=== PATIENT | male | born 1935 | race Caucasian/White ===

== ENCOUNTER 2019-02-19 12:00 | Inpatient (IN) | payer MEDICARE ==
[~2019-02-19] VITALS: Ht 167.6 cm; Wt 102.4 kg
[2019-02-19 12:35] LABS: Bicarbonate Venous 26.2 mmol/L (24.0-30.0); PCO2 Venous 38.2 mmHg (38-42); PO2 Venous 104 mmHg (38-42); pH Blood Venous 7.44 (7.34-7.37)
[2019-02-19 12:40] LABS: Hemoglobin 13.9 g/dL (13.5-17.5); Mean Corpuscular HGB 27.9 pg (26.0-34.0); Mean Corpuscular HGB Conc 32.3 g/dL (31.5-36.5); Mean Corpuscular Volume 86 fL (80-100); Mean Platelet Volume 12.2 fL (9.1-12.4); Platelet Count 167 K/mm3 (150-400); RDW Coefficient Variation 16.1 % (11.7-14.2); RDW Standard Deviation 50.3 fL (35.1-46.3); Red Blood Cell Count 4.98 M/mm3 (4.30-5.90); White Blood Cell Count 5.59 K/mm3 (4.00-11.30)
[2019-02-19 12:55] LABS: Alanine Aminotransfer (ALT/SGP 30 U/L (12-78); Albumin, Blood 2.5 g/dL (3.4-5.0); Albumin/Globulin Ratio 0.7 (0.8-1.8); Alk Phos 126 U/L (50-136); Anion Gap 7 mmol/L (6-16); Aspartate Aminotrans (AST/SGOT 37 U/L (12-37); Bilirubin, Total 0.6 mg/dL (0.1-1.0); Blood Urea Nitrogen 16 mg/dL (8-24); Bun/Creatinine Ratio 17.6 (12.0-20.0); CO2, Blood 27 mmol/L (21-32); Calcium, Blood 7.4 mg/dL (8.5-10.1); Chloride, Blood 102 mmol/L (98-108); Creatinine, Blood 0.91 mg/dL (0.60-1.20); Globulin, Blood 3.6 g/dL (2.2-4.0); Glomerular Filtration Rate >60 (60-); Glucose, Blood 145 mg/dL (70-99); Potassium, Blood 3.8 mmol/L (3.5-5.5); Sodium, Blood 136 mmol/L (136-145); Total Protein, Blood 6.1 g/dL (6.4-8.2)
[2019-02-19] MEDS ORDERED: ALBU90OI61 INH (13:04)
[2019-02-19] MEDS ORDERED: FINA5 PO (13:05)
[2019-02-19] MEDS ORDERED: AMLO10 PO (13:05)
[2019-02-19] MEDS ORDERED: FURO20 PO (13:06)
[2019-02-19] MEDS ORDERED: LEVSOD50 PO (13:06)
[2019-02-19] MEDS ORDERED: LOSARTAN POTAS100 MG PO (13:07)
[2019-02-19] MEDS ORDERED: POTCHL20ER PO (13:08)
[2019-02-19] MEDS ORDERED: METO25 PO (13:08)
[2019-02-19] MEDS ORDERED: TIOT18 INH (13:09)
[2019-02-19] MEDS ORDERED: TAMS.4ER PO (13:09)
[2019-02-19] MEDS ORDERED: WARF5 PO (13:10)
[2019-02-19] MEDS ORDERED: WARF7.5 PO (13:11)
[2019-02-19 13:28] LABS: BAND PERCENT MAN 6 % (0-8); BASOPHILS ABSOLUTE MAN 0.05 K/mm3 (0.00-0.23); BASOPHILS PERCENT MAN 1 % (0-2); EOSINOPHILS PERCENT MAN 0 % (0-6); LYMPHOCYTES % ATYPICAL MANUAL 1 % (0-0); LYMPHOCYTES ABSOLUTE MAN 1.62 K/mm3 (0.84-5.20); LYMPHOCYTES PERCENT MAN 28 % (21-46); MONOCYTES ABSOLUTE MAN 0.05 K/mm3 (0.16-1.47); MONOCYTES PERCENT MAN 1 % (4-13); NEUTROPHILS ABSOLUTE MAN 3.85 K/mm3 (1.96-9.15); SEG NEUTROPHILS PERCENT MAN 63 % (41-73); TOTAL CELLS COUNTED 100
[2019-02-19 15:28] LABS: International Normalized Ratio 1.8; Prothrombin Time Results 18.1 Sec (9.7-11.5)
--- NOTE | 2019-02-19 18:42 | NUR ---
PT ARRIVED [facility] THE MEDICAL FLOOR FROM THE ER AROUND 1530, A/OX3 PLEASANT AND COOPERATIVE, ON BI-PAP AND TOLERATING IT WELL, THE PT DENIED ANY PAIN OR DISCOMFORT AT THAT TIME, THE PT WAS ORIENTED TO THE ROOM LAYOUT AND CALL SYSTEM, CALL LIGHT IN REACH THE PT WAS GIVEN A SHORT BREAK FROM THE BI-PAP THIS AFTERNOON AND FOR DINNER, APPEARS TO BE BREATHING EASILY AT REST AT THIS TIME ON 3L/MIN O2
[2019-02-20 04:47] LABS: Hematocrit 45.1 % (37.0-53.0); Hemoglobin 14.2 g/dL (13.5-17.5); Mean Corpuscular HGB 27.2 pg (26.0-34.0); Mean Corpuscular HGB Conc 31.5 g/dL (31.5-36.5); Mean Corpuscular Volume 86 fL (80-100); Mean Platelet Volume 11.5 fL (9.1-12.4); Platelet Count 169 K/mm3 (150-400); RDW Coefficient Variation 15.7 % (11.7-14.2); RDW Standard Deviation 49.4 fL (35.1-46.3); Red Blood Cell Count 5.23 M/mm3 (4.30-5.90); White Blood Cell Count 2.55 K/mm3 (4.00-11.30)
[2019-02-20 05:03] LABS: International Normalized Ratio 1.89; Prothrombin Time Results 18.9 Sec (9.7-11.5)
[2019-02-20 05:10] LABS: Anion Gap 8 mmol/L (6-16); Blood Urea Nitrogen 22 mg/dL (8-24); Bun/Creatinine Ratio 24.3 (12.0-20.0); CO2, Blood 27 mmol/L (21-32); Calcium, Blood 7.9 mg/dL (8.5-10.1); Chloride, Blood 104 mmol/L (98-108); Creatinine, Blood 0.91 mg/dL (0.60-1.20); Glomerular Filtration Rate >60 (60-); Glucose, Blood 177 mg/dL (70-99); Potassium, Blood 3.4 mmol/L (3.5-5.5); Sodium, Blood 139 mmol/L (136-145)
--- NOTE | 2019-02-20 05:36 | NUR ---
SHIFT SUMMARY PT A&O X4, CALM AND COOPERATIVE. LUNG SOUNDS COARSE T/O. SPO2 > 92% ON 2L NC OR RA. BIPAP AT BEDSIDE, PT WEARING FOR SHORT PERIOD THIS SHIFT. MONITOR SHOWS AFIB, HR 70'S-80'S. ABD FIRM & MODERATELY DISTENDED, PT STATES NORMAL. PT DENIES PAIN. PITTING EDEMA TO BLE, ELEVATED W/ PILLOWS. PT SBA TO BR, TOLERATING AMBULATION WELL ON RA W/ DESATURATION. PT AWAKE MOST OF SHIFT, IN BED W/ CALL LIGHT IN REACH. WILL CONTINUE TO MONITOR AND PROVIDE CARE UNTIL REPORT OFF TO DAY SHIFT RN.
--- NOTE | 2019-02-20 08:16 | NUR ---
PT A/O, O2 SAT 93% ON 2L NC, DID HAVE INCREASED SOB W/EXCERTION WITH A DROP IN O2 SAT TO 88%, RECOVERED ONCE BACK TO BED. SBA TO BATHROOM, REFUSED URINAL. BLE EDEMA 2+. ABD DISTENTION, PT REPORTS THIS IS BASELINE.
--- NOTE | 2019-02-20 16:54 | NUR ---
SHIFT SUMMARY PT A/O. DID NOT EAT MUCH LUNCH TODAY. PT HAS BEEN VOIDING, STANDBY ASSIST TO BATHROOM. PT DID HAVE INCREASED SOB WITH EXERTION, BUT O2 BACK TO BASELINE WITH REST. PT HAS BEEN ON O2 ALL DAY TODAY. RESPIRATORY THERAPY HAS BEEN IN TO SEE PT TODAY.
--- NOTE | 2019-02-20 17:54 | NUR ---
SHIFT SUMMARY PT HAD INCREASED SOB W/EXCERTION BUT O2 SAT'S MAINTAINED >92% ON 2L NC. DID HAVE INCREASED ABD PAIN WITH N/V-MEDICATED ONCE WITH ZOFRAN. PT REPORTS PASSING FLATUS AND THAT HIS N/V HAS SINCE RESOLVED. SBA TO BATHROOM. PLAN IS TO CONTINUE WITH IV SOLU-MEDROL.
[2019-02-21 04:25] LABS: International Normalized Ratio 2.96; Prothrombin Time Results 28.4 Sec (9.7-11.5)
[2019-02-21 04:28] LABS: Anion Gap 5 mmol/L (6-16); Blood Urea Nitrogen 28 mg/dL (8-24); Bun/Creatinine Ratio 31.5 (12.0-20.0); CO2, Blood 27 mmol/L (21-32); Calcium, Blood 7.9 mg/dL (8.5-10.1); Chloride, Blood 106 mmol/L (98-108); Creatinine, Blood 0.89 mg/dL (0.60-1.20); Glomerular Filtration Rate >60 (60-); Glucose, Blood 177 mg/dL (70-99); Potassium, Blood 4.4 mmol/L (3.5-5.5); Sodium, Blood 138 mmol/L (136-145)
--- NOTE | 2019-02-21 06:24 | NUR ---
SHIFT SUMMARY PT A&O X4, CALM AND COOPERATIVE. PT STATES FEELING BETTER THIS SHIFT W/ NO C/O NAUSEA, PAIN OR DISCOMFORT. VSS. ORDER OBTAINED FOR PRN HYDRALAZINE THIS SHIFT, MEDICATION NOT GIVEN D/T BP COMING DOWN BELOW GIVEN SYS BP PARAMATERS W/OUT MEDICATION TX. AUDIBLE WHEEZE T/O LUNGS. SPO2 > 92% ON 2L NC W/ DECREASE TO HIGH 80'S W/ AMBULATION IN ROOM. BLE CONTIUE TO BE EDEMATOUS. PT KEEPING BLE ELEVATED W/ PILLOWS WHILE LAYING IN BED. WILL CONTINUE TO MONITOR AND PROVIDE CARE UNTIL REPORT OFF TO DAY SHIFT RN.
--- NOTE | 2019-02-21 11:09 | NUR ---
AM NOTE PT AWAKE, SITTING ON SIDE OF THE BED. HE JUST COMPLETED A BREATHING TREATMENT. AUDIBLE WHEEZES HEARD. SAT STABLE. VOICE CLEAR AND STRONG. HE STATED HE FEELS BETTER BUT BREATHING TREATMENTS GIVE HIM HEART BURN. VSS. NO COUGH. 2L N/C. DENIED DISCOMFORT. CONTINUE POT.
--- NOTE | 2019-02-21 17:47 | NUR ---
Initial Visit: Palliative Care Consult for Symptom Management. Pt is A&O and denies pain at this time. Pt reports 2/7 dyspnea at rest and worsens with exertion. Pt denies anxiety at this time but repots anxiety when dyspnea is severe. Pt denies nausea. Pt reports that his breathing has significanlty improved and breathing treatment are managing his SOB. Engaged in therapeutic conversation regarding advanced care planning. Pt reports that he lives at home with his and does not practice any mu-ism. Pt is a and served in the [employer]. Pt reports no concerns of need for care. Pt at baseline is independent of all ADLs and is able to participate in normal activity. He reports experiencing dyspnea at times during activity but with rest he recovers and continues on. Educated Pt on disease process of COPD including trajectory of disease. Encouraged Pt to have routine conversations with his PCP regarding his COPD in order to plan accordingly. Pt was unaware of trajectory and states "I did not know there was no cure for COPD". Suggested to follow his PCP's recommendations with managing his COPD. Discussed high risk readmission program and Pt expresses interest. Pt reports no other concerns at this time. Left written education on COPD with Pt. Spoke with Pt's bedside nurse Karrie and she reports concerns with Pt's breathing. No other concerns reported at this time. Plan: Left message with Tushar for COPD education regarding Pt's interest in high risk readmission program. Will f/u for symptom mangement of dyspnea.
--- NOTE | 2019-02-21 17:57 | NUR ---
EVENING NOTE PT ALERT AND ORIENTED. SR. SITTING IN THE CHAIR AT BEDSIDE MOST OF THE DAY. UP TO BATHROOM AD PAMELA. VOIDING PER URINAL SOMETIMES. EATING WELL. PT HAS FOUND THAT SIPPING YAEL MIST AFTER THE BREATHING TREATMENTS RELIEVES HIS HEARTBURN. VSS. INTERMITTANT AUDIBLE WHEEZES. RELIEVED WITH BREATHING TREATMENT. CONTINUE POT.
[2019-02-22 04:27] LABS: International Normalized Ratio 3.01; Prothrombin Time Results 28.9 Sec (9.7-11.5)
--- NOTE | 2019-02-22 05:59 | NUR ---
SHIFT SUMMARY PT A&O X4. INDEPENDENT IN ROOM. SOB W/ EXERTION, RECOVERS QUICKLY. SPO2 > 92% ON 2L NC. WHEEZE HEARD T/O LUNGS. MONITOR SHOWS AFIB W/ RATE CONTROLLED 70'S-80'S. BLE EDEMATOUS. PT KEEPING BLE ELEVATED W/ PILLOW WHEN LAYING IN BED. WILL CONTINUE TO MONITOR AND PROVIDE CARE UNTIL REPORT OFF TO DAY JOSE AGUILERA.
--- NOTE | 2019-02-22 08:10 | NUR ---
RECEIVED REPORT AND ASSUMED CARE OF PATIENT. WHEN THIS NURSE ENTERED ROOM, PT ASKS ABOUT NOTARY COMING TO HIS ROOM TO SIGN HIS WILL. HE BELIEVE THAT HE IS GOING TO SOON AND STATED HE WAS TOLD HE COULD NOT LEAVE THE HOSPITAL. EDUCATED PATIENT AND LISTENED TO HIS CONCERNS. WILL ASK PALLIATIVE CARE TO FOLLOW UP WITH PATIENT AND ADDITIONALLY SPEAK WITH DOCTOR ABOUT POSSIBLE O2 EVAL FOR HOME O2 SET UP IF NEEDED. PT AFFECT GREATLY IMPROVED AFTER DISCUSSION AND LISTENING TO HIS CONCERNS AND FEARS. WILL CONTINUE TO PROVIDE THERAPEUTIC LISTENING AND ENSURE HIS CONCERNS ARE ADDRESSED TODAY.
--- NOTE | 2019-02-22 16:07 | NUR ---
PT DOING WELL THIS AFTERNOON, HE IS UP AND AROUND HIS ROOM INDEPENDENTLY. PT REPORTS HE IS FEELING SO MUCH BETTER THE DAY GOES ON. HE HAS BEEN OFF OF O2 MOST OF THE DAY. TRANSFER ORDER RECEIVED TO GO TO MEDICAL FLOOR ROOM 338. WILL GIVE REPORT TO RN.
--- NOTE | 2019-02-22 17:50 | NUR ---
PATIENT TRANSFERRED FROM PCU THIS AFTERNOON. HE IS A/O X 4 AND INDEPENDENT IN THE ROOM. NO COMPLAINTS OF PAIN, SOB, NV. TELE STARTED WITH NO ISSUES NOTED FROM TECH.
[2019-02-23 05:25] LABS: Hematocrit 48.7 % (37.0-53.0); Mean Corpuscular HGB 27.1 pg (26.0-34.0); Mean Corpuscular HGB Conc 30.8 g/dL (31.5-36.5); Mean Corpuscular Volume 88 fL (80-100); Mean Platelet Volume 11.1 fL (9.1-12.4); Platelet Count 356 K/mm3 (150-400); RDW Coefficient Variation 16.1 % (11.7-14.2); Red Blood Cell Count 5.53 M/mm3 (4.30-5.90); White Blood Cell Count 14.22 K/mm3 (4.00-11.30)
[2019-02-23 05:33] LABS: International Normalized Ratio 2.34
--- NOTE | 2019-02-23 05:41 | NUR ---
*SHIFT SUMMARY* PATIENT IS ALERT. USES CPAP AT NIGHT WITH CONTINUOUS PULSE OX. REPORTS HE GETS UP TO PEE FREQUENTLY. PT DID WAKE UP EARLY THIS AM AND LEAVE HIS ROOM. PT STATED HE WAS DONE BEING HERE AND WAS GOING TO GET FOOD. PATIENT RIPPED OFF TELE LEADS. PATIENT WAS ABLE TO BE REDIRECTED BACK TO ROOM. FOOD GIVEN TO PATIENT AND HE WAS COOPERATIVE AND PUT TELE BACK ON. PATIENT WENT BACK TO SLEEP AFTER AND HAS CONTINUED TO BE PLEASANT. VITALS STABLE. BLOOD PRESSURE WAS SLIGHTLY ELEVATED HOWEVER THIS WAS SHORTLY AFTER PATIENT HAD BEEN UP WALKING.
[2019-02-23 05:55] LABS: Anion Gap 5 mmol/L (6-16); Blood Urea Nitrogen 22 mg/dL (8-24); Bun/Creatinine Ratio 26.4 (12.0-20.0); CO2, Blood 30 mmol/L (21-32); Chloride, Blood 104 mmol/L (98-108); Creatinine, Blood 0.83 mg/dL (0.60-1.20); Glomerular Filtration Rate >60 (60-); Glucose, Blood 173 mg/dL (70-99); Sodium, Blood 139 mmol/L (136-145)
[2019-02-23] MEDS ORDERED: ALBU3IS INH (14:24)
[2019-02-23] MEDS ORDERED: PANT20 PO (14:26)
[2019-02-23] MEDS ORDERED: POTA10T PO (14:27)
[2019-02-23] MEDS ORDERED: PRED20 PO (14:28)
--- NOTE | 2019-02-23 14:41 | NUR ---
PATIENT HAD IV REMOVED PRIOR TO DISCHARGE. NO SS OF INFECTION NOTED. NURSE FAXED MEDICATION TO [facility]. NEW MEDS WERE GONE OVER AND PATIENT WAS INSRUCTED TO ESTABLISH A PCP AT [facility] AND TO FOLLOW UP WITH THEM. PATIENT EDUCATED ON NEW MEDS AND HOW TO TAKE THEM. PATIENT WALKED OUT WITH GRANDSON WHO WAS TO TAKE PATIENT HOME.
== END 2019-02-23 14:38 | disposition home or self-care (01) | DRG 189 ==
LOC: ER 12:00 → PCU 13:16 → MEDS 02-22 17:28 → ENPENDDIS 02-23 13:29 → MEDS 02-23 14:38
PROVIDERS: Emergency Medicine; ADMIT Internal Medicine
PROC: 5A09357 Assistance with Respiratory Ventilation, Less than 24 Consecutive Hours, Continuous Positive Airway Pressure (ICD-10-PCS; principal; 2019-02-19)
DX: J96.01 Acute respiratory failure with hypoxia (principal); J44.1 Chronic obstructive pulmonary disease with (acute) exacerbation; E03.9 Hypothyroidism, unspecified; E66.9 Obesity, unspecified; E87.6 Hypokalemia; Z51.5 Encounter for palliative care; G47.33 Obstructive sleep apnea (adult) (pediatric); I10 Essential (primary) hypertension; I48.91 Unspecified atrial fibrillation; N40.0 Benign prostatic hyperplasia without lower urinary tract symptoms; Z87.891 Personal history of nicotine dependence; Z79.01 Long term (current) use of anticoagulants; Z68.36 Body mass index [BMI] 36.0-36.9, adult
CPT/HCPCS: 36415; 71045; 80048; 80053; 82803; 83605; 83880; 84145; 85025; 85027; 85610; 93005; 93010; 94640; 94660; 94762; 96365; 96367; 99285-25; J0360; J0456; J0696; J2405; J2920; J2930; J7050

== ENCOUNTER 2019-09-06 15:16 | Inpatient (IN) | payer MEDICARE ==
[~2019-09-06] VITALS: Ht 167.6 cm; Wt 101.9 kg
[~2019-09-06 15:16] MED LIST: ALBU3IS INH; ALBU90OI61 INH; AMLO10 PO; FINA5 PO; FURO40 PO; LEVSOD100 PO; LOSARTAN POTAS100 MG PO; METO25 PO; PANT20 PO; POTA10T PO; POTCHL20ER PO; PRED20 PO; TAMS.4ER PO; TIOT18 INH; WARF5 PO; WARF7.5 PO
[2019-09-06 16:01] LABS: BASOPHILS ABSOLUTE AUTO 0.06 K/mm3 (0.00-0.23); BASOPHILS PERCENT AUTO 1 % (0-2); EOSINOPHILS PERCENT AUTO 2 % (0-6); Hematocrit 43.6 % (37.0-53.0); Hemoglobin 14.1 g/dL (13.5-17.5); IMMATURE GRAN ABSOLUTE AUTO 0.02 K/mm3 (0.00-0.10); IMMATURE GRAN PERCENT AUTO 0 % (0-1); LYMPHOCYTES ABSOLUTE AUTO 0.85 K/mm3 (0.84-5.20); LYMPHOCYTES PERCENT AUTO 8 % (21-46); MONOCYTES ABSOLUTE AUTO 0.95 K/mm3 (0.16-1.47); MONOCYTES PERCENT AUTO 9 % (4-13); Mean Corpuscular HGB 28.7 pg (26.0-34.0); Mean Corpuscular HGB Conc 32.3 g/dL (31.5-36.5); Mean Corpuscular Volume 89 fL (80-100); NEUTROPHILS ABSOLUTE AUTO 8.03 K/mm3 (1.96-9.15); NEUTROPHILS PERCENT AUTO 79 % (41-73); Platelet Count 230 K/mm3 (150-400); RDW Coefficient Variation 15.9 % (11.7-14.2); RDW Standard Deviation 52.2 fL (35.1-46.3); Red Blood Cell Count 4.91 M/mm3 (4.30-5.90); White Blood Cell Count 10.11 K/mm3 (4.00-11.30)
[2019-09-06 16:27] LABS: Alanine Aminotransfer (ALT/SGP 29 U/L (12-78); Albumin, Blood 2.8 g/dL (3.4-5.0); Albumin/Globulin Ratio 0.9 (0.8-1.8); Alk Phos 123 U/L (50-136); Anion Gap 3 mmol/L (6-16); Aspartate Aminotrans (AST/SGOT 22 U/L (12-37); Bilirubin, Total 0.6 mg/dL (0.1-1.0); Blood Urea Nitrogen 20 mg/dL (8-24); Bun/Creatinine Ratio 19.6 (12.0-20.0); CO2, Blood 29 mmol/L (21-32); Calcium, Blood 8.2 mg/dL (8.5-10.1); Chloride, Blood 109 mmol/L (98-108); Creatinine, Blood 1.02 mg/dL (0.60-1.20); Glomerular Filtration Rate >60 (60-); Glucose, Blood 145 mg/dL (70-99); Potassium, Blood 3.7 mmol/L (3.5-5.5); Sodium, Blood 141 mmol/L (136-145); Total Protein, Blood 5.8 g/dL (6.4-8.2); Troponin I <0.015 ng/mL (0.000-0.040)
[2019-09-06] MEDS ORDERED: Terazosin HCl10 MG PO (21:46)
[2019-09-06] MEDS ORDERED: MAGNESIUM OXID500 MG PO (21:46)
[2019-09-06] MEDS ORDERED: THERA-D2000 UNIT PO (21:47)
[2019-09-06] MEDS ORDERED: FERSU300 PO (21:48)
[2019-09-06] MEDS ORDERED: CENTRUM SILVER1 EAC2 PO (21:48)
[2019-09-06 22:10] LABS: International Normalized Ratio 2.04; Prothrombin Time Results 20.3 Sec (9.7-11.5)
[2019-09-07 01:12] LABS: Adenovirus Not Detected (NOT DETECT); Bordetella pertussis Not Detected (NOT DETECT); Chlamydophila pneumoniae Not Detected (NOT DETECT); Coronavirus 229E Not Detected (NOT DETECT); Coronavirus HKU1 Not Detected (NOT DETECT); Coronavirus NL63 Not Detected (NOT DETECT); Coronavirus OC43 Not Detected (NOT DETECT); Human Metapneumovirus Not Detected (NOT DETECT); Human Rhinovirus/Enterovirus Not Detected (NOT DETECT); Influenza A Not Detected (NOT DETECT); Influenza A/2009-H1 Not Detected (NOT DETECT); Influenza A/H1 Not Detected (NOT DETECT); Influenza A/H3 Not Detected (NOT DETECT); Influenza B Not Detected (NOT DETECT); Mycoplasma pneumoniae Not Detected (NOT DETECT); Parainfluenza Virus 1 Not Detected (NOT DETECT); Parainfluenza Virus 2 Not Detected (NOT DETECT); Parainfluenza Virus 3 Not Detected (NOT DETECT); Parainfluenza Virus 4 Not Detected (NOT DETECT); Respiratory Syncytial Virus Not Detected (NOT DETECT)
[2019-09-07 04:57] LABS: International Normalized Ratio 1.76; Prothrombin Time Results 17.7 Sec (9.7-11.5)
--- NOTE | 2019-09-07 05:21 | NUR ---
SHIFT SUMMARY PT ARRIVED TO ROOM APPROX 2230 FROM ED. PT A/O NO C/O PAIN. SOB C EXERTION. WORE CPAP C 2L O2 NC BLED IN SATTING AT 89%. HE WAS ABLE TO SLEEP T/O NIGHT. LUNG SOUNDS WHEEZY. CALL LIGHT IN REACH.
--- NOTE | 2019-09-07 06:31 | NUR ---
PT HAS BEEN ON ROOM AIR SINCE TAKING OFF CPAP AT APPROX 0600. HAS BEEN 93% O2 ON RA. SAYS HE IS FEELING MUCH BETTER.
[2019-09-07] MEDS ORDERED: Prednisone10 MG (13:12)
--- NOTE | 2019-09-07 14:23 | NUR ---
PATIENT DISCHARGE: PATIENT DISCHARGED TO HOME THIS SHIFT. MEDICATION RECONCILIATION COMPLETED; MED LIST FAXED TO [facility]. DISCHARGE EDUCATION COMPLETED WITH PATIENT AND FAMILY. PATIENT TRANSPORTED TO EXIT BY [facility] WITH WHEELCHAIR AT 1419. PATIENT DEPARTED [facility] VIA PRIVATE AUTO.
== END 2019-09-07 14:15 | disposition home or self-care (01) | DRG 190 ==
LOC: ER 15:16 → MEDS 21:16
PROVIDERS: Physician Assistant; ADMIT Family Medicine
DX: J44.1 Chronic obstructive pulmonary disease with (acute) exacerbation (principal); J96.01 Acute respiratory failure with hypoxia; Z79.01 Long term (current) use of anticoagulants; I10 Essential (primary) hypertension; I48.91 Unspecified atrial fibrillation; E03.9 Hypothyroidism, unspecified; E66.9 Obesity, unspecified; G47.30 Sleep apnea, unspecified; Z87.891 Personal history of nicotine dependence; Z68.35 Body mass index [BMI] 35.0-35.9, adult
CPT/HCPCS: 0099U; 36415; 71046; 80053; 83880; 84484; 85025; 85610; 93005; 93010; 94010; 94640; 94644; 94645; 94660; 94664; 94667; 94760; 94762; 96374; 98960; 99285-25; 99406; J2930

== ENCOUNTER 2020-02-26 19:15 | Emergency (ER) | payer OTHER ==
[~2020-02-26] VITALS: Ht 167.6 cm; Wt 96.6 kg
[~2020-02-26 19:15] MED LIST changes: +CENTRUM SILVER1 EAC2 PO; +FERSU300 PO; +MAGNESIUM OXID500 MG PO; +Prednisone10 MG; +THERA-D2000 UNIT PO; +Terazosin HCl10 MG PO
== END 2020-02-26 19:58 | disposition home or self-care (01) ==
LOC: ER 19:15
DX: K13.0 Diseases of lips (principal); B37.0 Candidal stomatitis; I10 Essential (primary) hypertension; J44.9 Chronic obstructive pulmonary disease, unspecified; Z79.899 Other long term (current) drug therapy; Z79.01 Long term (current) use of anticoagulants; Z79.51 Long term (current) use of inhaled steroids; Z87.891 Personal history of nicotine dependence
CPT/HCPCS: 99282

== ENCOUNTER 2021-10-12 15:43 | Emergency (ER) | payer OTHER ==
[~2021-10-12] VITALS: Ht 170.2 cm; Wt 95.2 kg
[2021-10-12 16:21] LABS: BASOPHILS ABSOLUTE AUTO 0.06 K/mm3 (0.00-0.23); BASOPHILS PERCENT AUTO 1 % (0-2); EOSINOPHILS PERCENT AUTO 0 % (0-6); Hematocrit 42.1 % (37.0-53.0); Hemoglobin 13.8 g/dL (13.5-17.5); IMMATURE GRAN ABSOLUTE AUTO 0.02 K/mm3 (0.00-0.10); IMMATURE GRAN PERCENT AUTO 0 % (0-1); LYMPHOCYTES ABSOLUTE AUTO 0.39 K/mm3 (0.84-5.20); LYMPHOCYTES PERCENT AUTO 7 % (21-46); MONOCYTES ABSOLUTE AUTO 0.93 K/mm3 (0.16-1.47); MONOCYTES PERCENT AUTO 16 % (4-13); Mean Corpuscular HGB 29.2 pg (26.0-34.0); Mean Corpuscular HGB Conc 32.8 g/dL (31.5-36.5); Mean Corpuscular Volume 89 fL (80-100); Mean Platelet Volume 12.2 fL (9.1-12.4); NEUTROPHILS PERCENT AUTO 75 % (41-73); Platelet Count 167 K/mm3 (150-400); RDW Coefficient Variation 14.3 % (11.7-14.2); RDW Standard Deviation 46.5 fL (35.1-46.3); Red Blood Cell Count 4.73 M/mm3 (4.30-5.90)
[2021-10-12 16:51] LABS: Magnesium, Blood 1.9 mg/dL (1.6-2.4); Troponin I 0.037 ng/mL (0.000-0.040)
[2021-10-12 16:53] LABS: Albumin, Blood 2.6 g/dL (3.4-5.0); Albumin/Globulin Ratio 0.8 (0.8-1.8); Bilirubin, Total 0.5 mg/dL (0.1-1.0); Calcium, Blood 8.2 mg/dL (8.5-10.1); Creatinine, Blood 1.19 mg/dL (0.60-1.20); Globulin, Blood 3.1 g/dL (2.2-4.0); Potassium, Blood 3.9 mmol/L (3.5-5.5); Total Protein, Blood 5.7 g/dL (6.4-8.2)
[2021-10-12] MEDS ORDERED: Zithromax250 MG PO (18:50)
[2021-10-12] MEDS ORDERED: Prednisone20 MG PO (18:50)
== END 2021-10-12 19:24 | disposition home or self-care (01) ==
LOC: ER 15:43
PROVIDERS: Emergency Medicine
DX: J44.1 Chronic obstructive pulmonary disease with (acute) exacerbation (principal); J18.9 Pneumonia, unspecified organism; I10 Essential (primary) hypertension; Z79.899 Other long term (current) drug therapy; Z87.891 Personal history of nicotine dependence
CPT/HCPCS: 71045; 80053; 83605; 83735; 83880; 84145; 84484; 85025; 93005; 93010; 94644; 96374; 99285-25; A9270; J2930